=== PATIENT | female | born 1950 | race Caucasian/White ===

== ENCOUNTER 2016-08-19 05:28 | Inpatient (IN) | payer MEDICARE ==
--- NOTE | 2016-08-13 12:27 | NUR ---
JOINT CAMP Patient attended Joint Camp at [facility] in preparation for total shoulder replacement. Patient's DPOA is Brandon Lobomehnaz [phone]. Patient is not the main caregiver for anyone else. Patient comes from home and has 3 stairs to enter the home and none inside. Brandon Purdy and daughter will be helping patient post discharge. Patient's will do transportation on day of discharge. Patient has never received Home Health services or Senior Care but has been involved with outpatient physical therapy. Patient is stating there is no needs for DME at this time.
[~2016-08-19] VITALS: Ht 160 cm; Wt 76.7 kg
[2016-08-19] VITALS (12 sets, daily range): BP systolic 109–140; BP diastolic 52–76; PULSE 61–99; RESP 13–20; O2SAT 91–97
[~2016-08-19 05:28] MED LIST: ASPI-973 PO; BENZ200C44 PO; CITA20TA11 PO; IMI25 PO; LEVO50TA6 PO; LORA10CA PO; Lactated Ringer's 1,000 ML IV SCH; MELO-253 PO; METO25TA6 PO; MULT-1018 PO; OMEP40CA36 PO; PRED1DRO OD; SIMV20TA PO; SODI15DR6 OP; VIT1CAPS8 PO; tylenol
[2016-08-19] MEDS ORDERED: CeFAZolin Inj 2 GM in IV Premix 1 EACH IV ONE (06:00)
[2016-08-19] MEDS ORDERED: Bupivacaine Liposome 1.3% 20 mL Inj INFILTRATE ONE ×2 (06:00→09:22)
[2016-08-19] MEDS ORDERED: Hip/Knee Infiltration Cocktail IM ONE ×7 (06:00)
[2016-08-19] MEDS ORDERED: Lactated Ringer's 1,000 ML IV ONE ×2 (06:19→10:02)
[2016-08-19] MEDS ORDERED: Gentamicin Inj 160 MG in Syringe 1 EACH IRRIGATION ONE (07:30)
[2016-08-19] MEDS ORDERED: Bacitracin 50,000 unit Inj IRRIGATION ONE (08:32)
[2016-08-19] MEDS ORDERED: Gentamicin 40 mg/mL 2 mL Inj INJ ONE (08:32)
[2016-08-19] MEDS ORDERED: Tranexamic Acid 100 mg/mL 10 mL Inj ONE (09:01)
[2016-08-19] MEDS ORDERED: 0.9% Sodium Chloride 100 ML ONE (09:02)
[2016-08-19] MEDS ORDERED: Lactated Ringer's 500 ML IV PRN (09:17)
[2016-08-19] MEDS ORDERED: Lactated Ringer's 1,000 ML IV SCH (09:17)
[2016-08-19] MEDS ORDERED: MetoCLOpramide 5 mg/mL 2 mL Inj IVPUSH PRN (09:20)
[2016-08-19] MEDS ORDERED: Dexamethasone 4 mg/mL Inj IVPUSH PRN (09:20)
[2016-08-19] MEDS ORDERED: EPHEDrine Sulfate 50 mg/mL Inj IVPUSH PRN (09:20)
[2016-08-19] MEDS ORDERED: Phenylephrine 10,000 mCg/mL Inj IVPUSH PRN (09:20)
[2016-08-19] MEDS ORDERED: Ondansetron 2 mg/mL 2 mL Inj IVPUSH PRN (09:20)
[2016-08-19] MEDS ORDERED: fentaNYL-PF 50 mCg/mL 2 mL Inj IVPUSH PRN (09:20)
[2016-08-19] MEDS ORDERED: HYDROmorphone 1 mg/mL Inj IVPUSH PRN (09:20)
[2016-08-19] MEDS ORDERED: Sodium Chloride Bacteriostatic 30 mL Inj INJ ONE (09:21)
[2016-08-19] MEDS ORDERED: diphenhydrAMINE 25 mg Capsule PO PRN (10:30)
[2016-08-19] MEDS ORDERED: Magnesium Hydroxide 10 mL Oral Concentration PO PRN (10:30)
[2016-08-19] MEDS ORDERED: Polyethylene Glycol (PEG) 17 Gm Powder PO PRN (10:30)
[2016-08-19] MEDS ORDERED: Sodium Biphos-Phos 133 mL Enema RECTAL PRN (10:30)
--- NOTE | 2016-08-19 10:39 | PCM.ORTHOP ---
Orthopedic Operative Report Date of Service: Aug 19, 2016 Pre Operative Diagnosis Left shoulder degenerative joint disease Post Operative Diagnosis Same Procedure Left total shoulder arthroplasty, open biceps tenodesis Surgeon Surgeon: Colin Jang MD Assistants: Donnie Gaston Indication for Procedure Left shoulder degenerative joint disease Findings Severe degenerative joint disease, chondromalacia grade 4 Details of Procedure Implant: Arthrex univers vaultlock size medium glenoid, stem size 9 mm with 48/ 19 head The risks, benefits, indications and alternatives, including non-operative management of open reduction and plating were discussed with the patient in detail. The patient understood this operation would be strictly for pain control and would not necessarily improve the function of the arm. The patient voiced understanding of the risks and agreed to proceed. All questions were answered to the patients satisfaction. Verbal and written consent were obtained. Description of Operation: The patient was brought to the operating room. Time out was performed in the presence of the Orthopedic and the education faculty member. Preoperative antibiotics were given. Interscalene block performed by anesthesia. General anesthesia was administered. The patient was placed in a beachchair position. The right arm was prepped and draped in the usual sterile fashion. A standard deltopectoral approach was made. Blunt dissection was carried through the interval to expose the subscapularis muscle after retracting the conjoined tendon medially. Care was taken to not damage nearby neurovascular structures. The anterior humeral circumflex vessels were ligated. Gotti scissors were used to cut through the rotator interval to expose the anatomic neck of the humerus. The subscapularis tendon was tagged using # 1 Ethibond sutures. The subscapularis tendon was cut longitudinally using a Bovie. The shoulder was slowly externally rotated while peeling the inferior capsule off of the humeral neck until the shoulder was dislocated and the humeral head was exposed. There were small loose bodies in the subscapularis recess which were removed. There was extensive erosion and flattening of the humeral head. Extensive osteophytes were present over the periphery of the humeral head. 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 The subscapularis was tucked medially. The osteophytes around the humeral head were removed using an osteotome and mallet to expose the anatomic neck. The supraspinatus and infraspinatus were found to be intact and attached to the greater tuberosity. A neck cutting guide was placed and then the cut was made with 30 degrees of retroversion using a saw. The neck was sequentially broached to the proper fit. The head trial were placed until the proper fit was obtained. A head protector sleeve was placed on the cut surface. Using a Triatt retractor the glenoid was exposed. Circumferential exposure of the glenoid from the 1 o'clock position to the 7 o' clock position was done using a Bovie taking care to stay close to the bone. The glenoid was sized and then reamed appropriately. Peg holes were drilled along with the center hole. A trial implant was placed which fit well. After removing the trial, the wound was irrigated. The peg holes were filled with manually pressurized cement and the above mentioned glenoid component was impacted until an excellent fit was obtained. Attention was then taken to the humeral head. The humeral head trial was placed the the shoulder stability was verified after reduction and found to be appropriate. The trial head and stem were removed and proper inclination was noted. Multiple #2 Fiber-wire sutures were placed in the lateral subscapularis stump on the lesser tuberosity and then through the rim of the humeral neck. The implant was assembled on the back table. The wound was irrigated. The humeral implant was impacted into the humerus until the proper fit was obtained. The shoulder was reduced and excellent stability was tested and verified. The subscapularis was then repaired using the aforementioned Fiber-wire sutures and also an 0-Vicryl suture. A proximal biceps tenotomy was performed after a distal tenodesis was performed to the pec major.. The rotator interval was closed. Hemostasis was achieved. The wound was irrigated with copious saline. Local cocktail was used which included bupivicaine. Gentamicin was injected into the joint. IV transexamic acid was used preop and intraop. The wound was then closed in layers , dressed appropriately and the shoulder was placed in an immobilizer. The patient was extubated without difficulty and transferred to the PACU in stable condition. Nonweightbearing to affected upper extremity. Please leave sling on at all times. You may remove sling 3 times a day to move the elbow wrist and fingers. Do not move your shoulder. PROM only, IR to body, ER to 0 degrees, FF to 90 degrees, ABD to 0 degrees. Keep your arm at neutral, NO external rotation of the arm, no resisted IR of the arm. Please keep the affected extremity elevated when possible. You may use ice and/or heat as needed for comfort. Follow-up in 2 weeks with me with 2-view xrays and for suture removal and Steri -Strip application. Follow-up with me at 6 weeks. You will have pain medications , medication for constipation and aspirin 81 qdaily X 2 weeks. Grafts, Implants: Implants-See Implant Record Complications There were no periprocedural complications identified. Condition Stable Anesthetic Administered: GA Catheters: None Output, Estimated Blood Loss: 150 Blood Admin during surgery: No Surgical Cast or Splint: Shoulder Immobilizer Surgical Specimen Removed: No Specimen sent to Pathology: No copies to: Colin Jang MD, Christopher L MD Aug 19, 2016 10:39
[2016-08-19] MEDS ORDERED: Dexamethasone 4 mg/mL Inj ONE (11:12)
[2016-08-19] MEDS ORDERED: Succinylcholine Chloride 20 mg/mL 5 mL Inj ONE (11:12)
[2016-08-19] MEDS ORDERED: Phenylephrine/NS-PF 100 mCg/mL 5 mL Syringe IVPUSH ONE (11:12)
[2016-08-19] MEDS ORDERED: Ondansetron 2 mg/mL 2 mL Inj ONE (11:12)
[2016-08-19] MEDS ORDERED: Propofol 10,000 mCg/mL 20 mL Inj ONE (11:12)
[2016-08-19] MEDS ORDERED: fentaNYL-PF 50 mCg/mL 2 mL Inj ONE (11:12)
[2016-08-19] MEDS ORDERED: Ketamine 10 mg/mL 20 mL Inj ONE (11:12)
[2016-08-19] MEDS ORDERED: EPHEDrine/NS 5 mg/mL 5 mL Syringe ONE (11:12)
--- NOTE | 2016-08-19 11:20 | DRSVH ---
PROCEDURE: X-RAY LEFT SHOULDER, MINIMUM TWO VIEWS ([id number]) INDICATIONS: post op left shoulder TECHNIQUE: 2 views of the shoulder were acquired. COMPARISON: [facility], , SHOULDER MIN 2VW (LT), 07/17/2014, 12:40. FINDINGS: Expected postoperative changes are present related to a left shoulder arthroplasty. The metallic com ponent appears to be intact. No displaced fractures are evident. The postoperative changes within t he overlying soft tissues are noted. No unexpected radiopaque foreign bodies are appreciated. IMPRESSION: Expected postoperative changes related to left shoulder arthroplasty. Dictated by: Nemesio Burt M.D. on 08/19/2016 at 10:08 Approved by: Nemesio Burt M.D. on 08/19/2016 at 10:10
[2016-08-19] MEDS: 0.9% Sodium Chloride 1,000 ML IV SCH ×2 (11:33→23:31)
--- NOTE | 2016-08-19 12:00 | PCM.HPANE ---
Patient Data Date of Service: Aug 19, 2016 Surgeon Admitting Provider:Colin Jang MD Attending Provider:Colin Jang MD Primary Care Physician:Yoli Miller Other Provider:Lynne Carney Anesthesia Reason for Visit Left Shoulder Arthritis Ht/WT & BMI Height (Feet): 5 Height (Inches): 3.00 Weight (Kilograms): 76.650 Body Mass Index 29.00 Allergies Coded Allergies: Sulfa (Sulfonamide Antibiotics) (Verified Allergy, Unknown, hives, 08/12/16 ) Past Anesthesia History Anesthesia History: Denies:: Abnormal Airway, Anesthesia Reactions, Fam Anesthesia Reaction Diabetes History Hx Diabetes?: No MRSA MRSA: No Medications Hypertension Medication: No Home Meds Incl Beta Eric: No Reported Medications [tylenol] 500mg No Conflict Check1 Tab q4-6h PRN For Pain 08/12/16 Sumatriptan (Imitrex)25 Mg Iknmwv77 Mg PO Q2H PRN migraines MR n6ducbw/ NTE 200mg/24 hours 08/12/16 Simvastatin (Zocor)20 Mg Nqgbrx30 Mg PO HS 30 Days Ref 0 08/12/16 Prednisolone Acetate (Pred Forte)1 Ml Drops.susp1 Ml OD DAILY 08/12/16 Omeprazole 40 Mg Capsule.dr40 Mg PO DAILY Ref 0 08/12/16 Metoprolol Tartrate 25 Mg Matory45 Mg PO PRN migraines 30 Days Ref 0 08/12/16 Meloxicam 15 Mg Pjyisk44 Mg PO DAILY 30 Days Ref 0 08/12/16 Levothyroxine 50 Mcg Rrpjfy33 Mcg PO DAILY Ref 0 08/12/16 Citalopram 20 Mg Dnjirx10 Mg PO DAILY Ref 0 08/12/16 Discontinued Reported Medications Vit C/Vit E/Lutein/Min/[place]-3 (Ocuvite Softgel)1 Each Capsule1 Each PO DAILY 08/12/16 Sodium Chloride (Fern-128)15 Ml Drops15 Ml OP DAILY 08/12/16 Aspirin 81 Mg Fzyppt99 Mg PO DAILY Ref 0 08/12/16 Loratadine (Claritin)10 Mg Wxsyyum96 Mg PO DAILY PRN allergy sx Ref 0 08/12/16 Multivitamin (Multi Vitamin Daily)1 Each Tablet1 Each PO DAILY 30 Days Ref 0 08/12/16 Benzonatate 200 Mg Ypynzex794 Mg PO BID PRN For Cough 08/12/16 Last Time Dose Received metoprolol for headaches. She has not taken in the last month History History of ENT Problems?: No HEENT History: Denies:: Abnormal Airway Hearing Problem Denture Type: None Teeth Condition: Within Normal Limits Other HEENT Pertinent History: hx of corneal transplant Hx of Heart Problems?: No Cardiovascular History: Denies:: Edema Hx of Respiratory Problem?: No Respiratory History: Denies:: Asthma COPD Emphysema Oxygen Administration Use of C-PAP Machine Hx Neurologic Problems?: Yes Neurological History: Positive for:: Headaches (migraines) Denies:: CVA Multiple Sclerosis Parkinson's Disease Seizures Hx of GI Problems?: Yes Hx of Problems?: No Hx Musculoskeletal Problems?: Yes Musculoskeletal History: Positive for:: Degenerative Joint Osteoarthritis (left shoulder current admission problem) Denies:: Joint Replacement Hx of Psycho/Social Problems?: No Hx Surgeries?: Yes (corneal transplant, appe) Hx Any Other Health Problems?: Yes Other History: Denies:: Cancer Thyroid Disease Hx Diabetes: No Hx Alcohol Use: YesAlcoholic Drinks Per Day: occasionalHx Substance Use: No Have You Smoked inLast 12 mo: No Stop/Bang Treated for Sleep Apnea?: No Do You Have a CPAP Machine?: No S-Snoring: Do You Snore Loudly: No T-Tired: feel tired, fatigued: Yes O-Obsered: Observed not breath: No P-Blood Pressure: treated: No B- Body Mass Index > 35 kg/m2: No A- Age over 50: Yes N- Neck Large Circumference: No G- Gender Male: No RENETTA Total Score: 2 RENETTA Risk Assessment: Low Risk, <3 Yes Risk Assessment Category Category 1A: Patient has history of documented sleep apnea, and HAS NOT received any narcotic, sedative or anesthesia administration during this stay. Category 1B: Patient has history of documented sleep apnea, and HAS received any narcotic , sedative or anesthesia administration during this stay Category 2: Patient has SUSPECTED Obstructive Sleep Apnea, and HAS received any narcotic , sedative or anesthesia administration during this stay. Category 3: Patient has SUSPECTED Obstructive Sleep Apnea and HAS NOT received narcotic, sedative or anesthesia administration during this stay. Category 4: Outpatient in Procedural Areas with known sleep apnea or who screen positive for High Risk via the STOP/BANG questionnaire. Exam Exam Vital Signs Vital Signs Date Time Temp Pulse Resp B/P Pulse Ox O2 Delivery O2 Flow Rate FiO2 08/19/16 11:20 36.8 86 15 136/76 93 Nasal Cannula 3.00 08/19/16 11:15 88 13 126/64 94 Nasal Cannula 3 08/19/16 11:05 36.6 88 15 125/52 94 Nasal Cannula 3 08/19/16 11:00 95 15 138/61 93 Nasal Cannula 3 08/19/16 10:45 95 20 138/64 93 Nasal Cannula 3 08/19/16 10:40 98 14 137/57 91 Room Air 08/19/16 10:35 97 18 140/69 97 Simple Mask 8 08/19/16 10:30 98 19 127/56 95 Simple Mask 8 08/19/16 10:25 36.5 99 18 133/55 95 Simple Mask 8 08/19/16 06:20 36.7 61 20 130/64 97 Room Air General Appearance: Alert, Oriented X3 HEENT/AIRWAY: MP 1 Lungs: Clear to Auscultation Heart: Exam Unremarkable Meds/Labs/Diagnostics Admission Meds Current Medications Tranexamic Acid 1000 mg/Sodium Chloride 110 ml @ 660 mls/hr PREOP IV Last administered on 08/19/16 09:20; Start 08/19/16 at 06:00; Stop 08/19/16 at 11:18; Status DC Morphine Sulfate 10 mg/Bupivacaine HCl 40 ml/ Epinephrine 0.3 mg/Vancomycin HCl 500 mg/Ketorolac Tromethamine 30 mg/Syringe/Sodium Chloride 50 ml @ 0 mls/hr ONCE ONCE IM Last administered on 08/19/16 08:36; Start 08/19/16 at 06:00; Stop 08/19/16 at 06:01; Status DC Lactated Ringer's (Lr) 1,000 ml @ ud STK-MED ONCE IV Last administered on 06:19; Start 08/19/16 at 06:19; Stop 08/19/16 at 06:20; Status DC Gentamicin Sulfate (Gentamicin Inj) 160 mg STK-MED ONCE INJ Last administered on 08/19/16 08:32; Start 08/19/16 at 08:32; Stop 08/19/16 at 08:34; Status DC Bacitracin (Bacitracin Inj) 50,000 unit STK-MED ONCE IRRIGATION Last administered on 08/19/16 08:32; Start 08/19/16 at 08:32; Stop 08/19/16 at 08:34; Status DC Sodium Chloride (NS Bacteriostatic) 30 ml STK-MED ONCE INJ Last administered on 08/19/16 09:21; Start 08/19/16 at 09:21; Stop 08/19/16 at 09:22; Status DC Bupivacaine HCl 20 ml 20 ml STK-MED ONCE INFILTRATE Last administered on 09:22; Start 08/19/16 at 09:22; Stop 08/19/16 at 09:23; Status DC Lactated Ringer's 1,000 ml @ ud STK-MED ONCE IV Last administered on 08/19/16 10:02; Start 08/19/16 at 10:02; Stop 08/19/16 at 10:05; Status DC Sodium Chloride (Normal Saline) 1,000 ml @ 80 mls/hr [id number] IV Last administered on 08/19/16 11:33; Start 08/19/16 at 10:28 Plan Impression Patient chart reviewed, patient interviewed and anesthestic plan with risks, benefits, and alternatives discussed, and informed consent obtained. NPO per Anesth. Guidelines: Yes ASA Physical Status: ASA2 Mod Systemic Disease Anesthetic Plan: GA Bene/Risks/Altern/Consents: Yes HP Complete Prior to Induction: Yes Oneal Putnam MD Aug 19, 2016 12:00
--- NOTE | 2016-08-19 12:01 | PCM.ANEP1 ---
Post Anesthesia PACU Phase 1 Assessment Vital Signs Vital Signs Date Time Temp Pulse Resp B/P Pulse Ox O2 Delivery O2 Flow Rate FiO2 08/19/16 11:20 36.8 86 15 136/76 93 Nasal Cannula 3.00 08/19/16 11:15 88 13 126/64 94 Nasal Cannula 3 08/19/16 11:05 36.6 88 15 125/52 94 Nasal Cannula 3 08/19/16 11:00 95 15 138/61 93 Nasal Cannula 3 08/19/16 10:45 95 20 138/64 93 Nasal Cannula 3 08/19/16 10:40 98 14 137/57 91 Room Air 08/19/16 10:35 97 18 140/69 97 Simple Mask 8 08/19/16 10:30 98 19 127/56 95 Simple Mask 8 08/19/16 10:25 36.5 99 18 133/55 95 Simple Mask 8 08/19/16 06:20 36.7 61 20 130/64 97 Room Air Anesthetic Administered: GA Level of Alertness: Awake, talking Pain: No Nausea or Vomiting: No CV Function & Hydration Stable: No Airway Device: Oxygen Delivery: Room Air Lungs: Clear to Auscultation PACU Phase 2 Assessment Complications: No Follow up Care: No Patient Instructions Provided: Yes Oneal Putnam MD Aug 19, 2016 12:01
--- NOTE | 2016-08-19 13:08 | NUR ---
Admission to [facility] patient arrived to [facility] room 1010 at 1120hrs. Assumed care at that time. patient A&Ox3, denies pain. left shoulder dressing CD&I, left shoulder immobilizer in place. assisted up to BSC. able to stand and pivot to BSC with minimal assist.
--- NOTE | 2016-08-19 15:19 | NUR ---
Evaluation completed. Please go to "Notes" then click on "Assessments and Notes" (bottom left corner of screen). Then select appropriate discipline tab on top of screen.
[2016-08-19] MEDS: HYDROcodone-APAP 5-325 mg Tablet PO PRN ×2 (16:08→20:31)
[2016-08-19] MEDS: CeFAZolin Inj 2 GM in IV Premix 1 EACH IV SCH ×2 (16:09→23:31)
[2016-08-19 16:29] LABS: APPEARANCE,URINE CLEAR (CLEAR,HAZY); COLOR,URINE STRAW (YELLOW); OCCULT BLOOD,URINE NEGATIVE (NEGATIVE); PH,URINE 5.5 (5.0-8.0); UROBILINOGEN,URINE NORMAL (NORMAL)
[2016-08-19] MEDS: Senna-Docusate 8.6-50 mg Tablet PO SCH (20:30)
[2016-08-20] MEDS: HYDROcodone-APAP 5-325 mg Tablet PO PRN ×3 (00:15→08:46)
[2016-08-20 00:34] VITALS: BP 125/58; PULSE 71; RESP 17; O2SAT 95
[2016-08-20 04:42] VITALS: BP 138/61; PULSE 68; RESP 17; O2SAT 95
--- NOTE | 2016-08-20 05:15 | NUR ---
Pain Pt reporting pain to shoulder from 2-07/25 and has been taking 2 tablets of [place] q 4 hrs which pt has reported to be effective. Left shoulder in immobilizer and pt now has full sensation and has been able to move hand/fingers normally. Ice applied to shoulder. Pt up with SBA to BR, no issues.
[2016-08-20 05:30] LABS: BASOPHILS % (AUTO) 0 % (0-3); EOSINOPHILS % (AUTO) 0.2 % (0-5); MONOCYTES % (AUTO) 12.9 % (4-12); Mean Corpuscular Hemoglobin 29.3 pg (27.0-35.0); Mean Corpuscular Volume 92.4 fL (81-100); Platelet Count 191 bil/L (150-400)
[2016-08-20 07:53] VITALS: BP 110/51; PULSE 63; RESP 16; O2SAT 95
--- NOTE | 2016-08-20 08:36 | PCM.PNORTH ---
Subjective Date of Service: Aug 20, 2016 Visit Information: Reason for Visit Left Shoulder Arthritis Surgery/Surgery Date L TSA 08/19/16 Post-Op Day # 1 Date of Admission: Aug 19, 2016 at 11:11 Hospital Day # Subjective Patient reports she has been rather painful. She had Catano around 8:30 and is still painful. She is also having some spasms. We discussed pain medication and will add oxycodone and vistaril. OT will see patient later this morning. Postop General: No Shortness of Breath, No Chest Pain, Good Appetite Pain Management: PO Objective Exam Objective Patient is seen sitting up in bed. Her is at bedside. Vital Signs and I/O Vital Sign - Last Date Time Temp Pulse Resp B/P Pulse Ox O2 Delivery O2 Flow Rate FiO2 08/20/16 07:53 36.9 63 16 110/51 95 Room Air 08/19/16 20:22 3.00 Intake and Output 08/19/16 08/19/16 08/20/16 Cumulative From/Thru 15:00 23:00 07:00 08/12/16 14:37 - 08/20/16 04:59 Intake Total 1670 ml 1335 ml 2549 ml 5554 ml Output Total 300 ml 750 ml 750 ml 1800 ml Balance 1370 ml 585 ml 1799 ml 3754 ml Intake Oral 800 ml 1718 ml 2518 ml IV Total 1670 ml 535 ml 831 ml 3036 ml Output Urine Total 750 ml 750 ml 1500 ml Estimated Blood Loss 300 ml 300 ml # Bowel Movements 0 0 0 Lab & Micro Results Laboratory Tests Test 08/19/16 16:09 08/20/16 05:02 Urine Color Straw (YELLOW) Urine Appearance Clear (CLEAR,HAZY) Urine pH 5.5 (5.0-8.0) Urine Specific [place] 1.010 (1.003-1.035) Urine Protein Negativemg/dL (NEG,TRACE) Urine Glucose (UA) Negativemg/dL (NEGATIVE) Urine Ketones Negativemg/dL (NEGATIVE) Urine Occult Blood Negative (NEGATIVE) Urine Nitrite Negative (NEGATIVE) Urine Bilirubin Negative (NEGATIVE) Urine Urobilinogen Normalmg/dL (NORMAL) Urine Leukocyte Esterase Negative (NEGATIVE) Urine RBC 0-2/hpf (0-2) Urine WBC 0-5/hpf (0-5) Urine Epithelial Cells Moderate/hpf (NONE-MOD) Urine Crystals None seen (NONE SEEN) Urine Bacteria Few/hpf (NONE-FEW) Urine Hyaline Casts None/lpf (NONE) Urine Granular Casts None seen (NONE SEEN) Urine Waxy Casts None seen (NONE SEEN) Urine Red Blood Cell Casts None seen (NONE SEEN) Urine White Blood Cell Casts None seen (NONE SEEN) Urine Mucus None seen (None Seen) Urine Trichomonas None seen (NONE SEEN) Urine Yeast None (NONE SEEN) Urinalysis Comment None Urine Culture Reflexed Not indicated White Blood Count 8.6th/mm3 (3.8-10.1) Red Blood Count 3.17mil/mm3 (3.90-5.20) Hemoglobin 9.3g/dL (12.0-15.6) Hematocrit 29.3% (35.0-46.0) Mean Corpuscular Volume 92.4fL (81-100) Mean Corpuscular Hemoglobin 29.3pg (27.0-35.0) Mean Corpuscular Hemoglobin Concent 31.7% (32.0-37.0) Red Cell Distribution Width 13.7% (12.3-15.4) Platelet Count 191bil/L (150-400) Neutrophils (%) (Auto) 66.0% (40-74) Lymphocytes (%) (Auto) 20.8% (14-46) Monocytes (%) (Auto) 12.9% (4-12) Eosinophils (%) (Auto) 0.2% (0-5) Basophils (%) (Auto) 0% (0-3) Result Diagram: 08/20/16 0502 General Appearance: Alert, Oriented X3, Cooperative, Mild Distress Extremities: Distal Pulses Palpable Postop Sensory Motor: Distal Motor Intact, Movement in Fingers, NVI Distally SURGICAL WOUND : Wound Location/Description Surgical dressing is clean, dry and intact. The shoulder immobilizer is in place. Incision General Appearance: No Direct Observation Activity: Activity per PT Catheters: None Assessment & Plan Impression POD #1 left total shoulder arthroplasty Problems: Plan Weightbearing: Nonweightbearing left arm 6 weeks DVT prophylaxis: aspirin 81 mg once a day 2 weeks Wound care: Remove the current dressing on Wednesday and apply a new bandage Activity: No active motion of the left shoulder 6 weeks. Keep shoulder in neutral position. Wear the sling at all times except it may be removed 3 times a day to do range of motion for the elbow, wrist and hand OT will see patient today. Pain medication is changed to oxycodone. Vistaril is also added. Discharge plan: Discharge home today if pain is better controlled with changes to medications. I will recheck patient after lunch. Follow-up plan: In 2 weeks at [facility] with Dr. Jang for wound check and at [address] Jang with x-rays New pain medicine regime works much better. Patient feels she will ready to go home this afternoon after OT. Pain Management: Catano, oxycodone, vistaril VTE Prophylaxis: STEPHANIE Hurtado, Other (Aspirin 81 mg) Resuscitation Status: CPR: Attempt Resuscitation RevereApolonia Jacobs PA-C Aug 20, 2016 08:36
--- NOTE | 2016-08-20 08:44 | PCM.DIOPOR ---
OP Ortho Discharge Instruction Dates of Hospitalization Date of Discharge: Aug 20, 2016 Providers Admitting Physician: Colin Jang MD Primary Care Physician: Yoli Miller Attending Physician: Colin Jang MD Diagnosis at Time of Discharge Post operative diagnosis status post left total shoulder arthroplasty Diet Discharge Diet: No restrictions Activity Activity-General: Ice incision 3-5 time/day for 20min Left Upper Extremity: Non-weight bearing Range of motion restrictions: No active motion of left shoulder Discharge Assist Device: Shoulder Immobilizer Dressing and Incisional Care Dressing Care: Keep dressing clean, dry & intact Hygiene: May shower (see instruction below) Additional Instructions Discharge Instructions Weightbearing: Nonweightbearing left arm 6 weeks DVT prophylaxis: aspirin 81 mg once a day 2 weeks Wound care: Remove the current dressing on Wednesday and apply a new bandage. Leave steri strips in place until seen in office Change dressing every 2-3 days or as needed if soiled. Activity: No active motion of the left shoulder 6 weeks. Keep shoulder in neutral position. No lifting, carrying, pushing, pulling or leaning on the left arm Wear the sling at all times except it may be removed 3 times a day to do range of motion for the elbow, wrist and hand Showering: on Wednesday, june shower if there is no drainage present at the wound. Do not soak wound. Cover with plastic wrap and tape if needed. You can lean to the left a little to let the arm drift away from the body so you can wash the armpit and dry but no active motion. Follow Up Plan Follow Up Plan Follow-up plan: In 2 weeks at [facility] with Dr. Jang for wound check and at [address] Jang with x-rays Call your provider for: Fever, Chills, Shortness of breath, Vomitting, Drainage at incision, Wound redness, Increasing pain Apolonia Candelario PA-C Aug 20, 2016 08:44
[2016-08-20] MEDS: Senna-Docusate 8.6-50 mg Tablet PO SCH (08:48)
[2016-08-20] MEDS ORDERED: hydrOXYzine Pamoate 25 mg Capsule PO PRN (09:40)
[2016-08-20] MEDS: 0.9% Sodium Chloride 1,000 ML IV SCH (11:10)
--- NOTE | 2016-08-20 12:37 | NUR ---
Social Work- Multi-Disciplinary Rounds/ Initial Assessment Data: See Initial Assessment. Pt is a 66 year old female admitted for left shoulder arthritis per H&P. Pt is POD 1 total shoulder arthroplasty. Ortho is primary on this pt, no Hospitalist is following. Per rounds with lna and UR RN, pt is doing well and is anticipated to discharge tomorrow. Pt's pain control has been an issue and Ortho has adjusted her pain regiment. PT and OT will see pt during this admission. Pt's insurance is [employer]. Pt's PCP is LESLY Meléndez. SW met with pt at bedside regarding discharge plan. Pt alert and oriented x3. Pt resides in [place] near [place] in a manufactured home with her where she is independent at baseline. HISTOTECHNOLOGIST assessed pt's capacity for self-care. Pt uses no DME at home and continues to drive. 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 Pt's is independent as well, other than some back problems. Pt stated that as long as he doesn't have to carry her at home (which he won't because pt has been independent during this admission) pt's will help her at home. Pt was cordial and appropriate with HISTOTECHNOLOGIST and able to describe her care plan to HISTOTECHNOLOGIST. Pt reports that OT will return this afternoon so that her can be available to observe. HISTOTECHNOLOGIST has no concerns about pt's capacity for self care at this time. Pt has no DPOA on file, but this information has been completed and is awaiting notarization. Pt's is DPOA. JUANITA provided pt with Discharge Planning Checklist and instructed her to call the phone number on the board if she has needs identified in the booklet. Pt agreeable. Pt to discharge home with to transport via POV. No discharge needs anticipated at this time. Assessment: Pt who is independent at baseline and whose will assist her at home. Plan: OT evaluation pending. Pt anticipated to discharge home with to transport via POV and assist at home. No discharge needs identified at this time. SW will continue to follow. PRINCESS Martinez Addendum: 08/20/16 at 1244 by LORY LAMAS SS Amended: Links added.
[2016-08-20] MEDS ORDERED: OXYC5TAB72 PO (13:22)
[2016-08-20] MEDS ORDERED: HYDR-3797 PO (13:22)
--- NOTE | 2016-08-20 13:27 | PCM.DC.ORT ---
Discharge Summary Date of Service: Aug 20, 2016 Date of Hospital Admission: Aug 19, 2016 at 11:11 Date of Surgery: Aug 19, 2016 Date of Discharge: Aug 20, 2016 Reason for Hospitalization: Left shoulder arthritis Procedures Performed: Left total shoulder arthroplasty Hospital Course: Patient was admitted to the hospital on 07/20/2016 and underwent the above procedure. The surgeon was Dr. Jang. She tolerated the procedure well and was transferred to PACU, then to OSC. [place] did not provide adequate pain relief so it was changed to oxycodone and vistaril. The patient felt this combination worked much better. Patient was seen by occupational therapy and learned motion exercises for the elbow wrist and hand as well as how to don and doff the brace. Patient was discharged home on postop day 1. She will take aspirin 81 mg once a day for 2 weeks for DVT prophylaxis. Patient may remove the sling 3 times a day for range of motion exercises. No active motion of the shoulder. Patient will follow up with us routinely 2 weeks postop. Diagnosis at Time of Discharge status post left shoulder arthroplasty Problems: Disposition: discharged home with her to assist in her care Discharge Instructions: Weightbearing: Nonweightbearing left arm 6 weeks DVT prophylaxis: aspirin 81 mg once a day 2 weeks Wound care: Remove the current dressing on Wednesday and apply a new bandage Activity: No active motion of the left shoulder 6 weeks. Keep shoulder in neutral position. Wear the sling at all times except it may be removed 3 times a day to do range of motion for the elbow, wrist and hand ([tylenol]) 500mg 1 TAB q4-6h PRN PRN For Pain Citalopram (Citalopram) 20 Mg Tablet 20 MG PO DAILY Hydroxyzine Pamoate (HydrOXYzine Pamoate) 25 Mg Capsule 25 MG PO Q6H PRN PRN For Spasm Levothyroxine (Levothyroxine) 50 Mcg Tablet 50 MCG PO DAILY Meloxicam (Meloxicam) 15 Mg Tablet 15 MG PO DAILY Metoprolol Tartrate (Metoprolol Tartrate) 25 Mg Tablet 25 MG PO PRN migraines Omeprazole (Omeprazole) 40 Mg Capsule.dr 40 MG PO DAILY Prednisolone Acetate (Pred Forte) 1 Ml Drops.susp 1 ML OD DAILY Simvastatin (Zocor) 20 Mg Tablet 20 MG PO HS Sumatriptan (Imitrex) 25 Mg Tablet 50 MG PO Q2H PRN PRN migraines MR [id number]/ NTE 200mg/24 hours oxyCODONE (oxyCODONE) 5 Mg Tablet 5-10 MG PO Q3H PRN PRN For Moderate Pain Apolonia Candelario PA-C Aug 20, 2016 13:27
--- NOTE | 2016-08-20 14:17 | NUR ---
Social Work- Discharge Data: EMR reviewed. Pt is medically stable for discharge, discharge orders are active. OT has seen pt and has cleared pt for home at this time. Pt has no concerns about discharging, pt to discharge home with to transport via POV. No additional discharge needs identified. Assessment: Pt who is independent at baseline and whose will assist at home. Plan: Pt to discharge home with to transport via POV. No additional discharge needs identified. Irais Mckeon MSW
[2016-08-20 14:52] VITALS: BP 129/55; PULSE 59; RESP 18; O2SAT 97
--- NOTE | 2016-08-20 15:20 | NUR ---
DISCHARGE Patient's pain medication was switched to Oxicodone and Vistaril. Patient stated that she has better pain control after this regimen as compared to the Hydrocodone/APAP. Tolerating liquids PO and her diet well. Denies nausea. No emesis noted. Denies SOB. Patient has been able ambulate with SBA in the room. Tolerating activity well. Dressing is CDI. Immobilizer in place. IV saline lock d/cd. Discharge instruction, care notes and prescription was given to the patient and her they both verbalized understanding. (copy of D/C is in the chart).
== END 2016-08-20 15:05 | disposition home or self-care (01) | DRG 483 ==
LOC: SAS 05:28 → OSC 11:11
PROVIDERS: ADMIT Orthopaedic Surgery; ATTEND Orthopaedic Surgery
PROC: 0LS40ZZ Reposition Left Upper Arm Tendon, Open Approach (ICD-10-PCS; 2016-08-19)
PROC: 0RRK0JZ Replacement of Left Shoulder Joint with Synthetic Substitute, Open Approach (ICD-10-PCS; principal; 2016-08-19 07:30)
DX: M19.012 Primary osteoarthritis, left shoulder (principal); M75.22 Bicipital tendinitis, left shoulder